=== PATIENT | female | born 1995 | race African-American/Black ===

== ENCOUNTER 2016-09-20 23:23 | Emergency (ER) | payer SELFPAY ==
[~2016-09-20] VITALS: Ht 157.5 cm; Wt 125.0 kg
[2016-09-21] MEDS ORDERED: KETOROLAC 60MG/2ML VIAL IM ONE (00:15)
[2016-09-21 01:06] VITALS: BP 140/85
== END 2016-09-21 02:11 | disposition home or self-care (01) ==
LOC: ER 23:23 → EDBD 23:23 → ER 09-21 02:11
DX: R51 Headache (principal); I10 Essential (primary) hypertension; J45.909 Unspecified asthma, uncomplicated; Z90.89 Acquired absence of other organs
CPT/HCPCS: 81025; 96372; 99283; J1885

== ENCOUNTER 2019-02-27 02:06 | Emergency (ER) | payer MEDICAID ==
[~2019-02-27] VITALS: Ht 157.5 cm; Wt 117.0 kg
[2019-02-27] MEDS ORDERED: ACETAMINOPHEN 325MG TABLET PO PRN (06:30)
[2019-02-27 07:02] LABS: EOSINOPHILS % 1.3 % (0.0-5.0); HEMATOCRIT. 37.5 % (36.0-48.0); HEMOGLOBIN. 12.5 g/dL (12.0-16.0); LYMPHOCYTES % 31.6 % (20.0-50.0); MEAN CORPUSCULAR HEMOGLOBIN 30.6 pg (28.0-32.0); MEAN CORPUSCULAR VOLUME 92.1 fL (81.0-99.0); MEAN PLATELET VOLUME 10.6 fl (7.4-10.4); MONOCYTES % 5.7 % (2.0-8.0); NEUTROPHILS % 60.4 % (40.0-76.0); PLATELET 259 x1000/uL (130-400); RED BLOOD CELL COUNT 4.07 mill/uL (4.2-5.4); RED CELL DISTRIBUTION WIDTH 14.2 % (11.6-14.6)
[2019-02-27 07:06] LABS: CHLORIDE 103 mEq/L (98-107)
[2019-02-27 07:16] LABS: B-HCG QUANTITATIVE < 1 mIU/mL (<3)
[2019-02-27 07:26] LABS: CLARITY URINE TURBID (CLEAR); KETONES URINE 1+ (NEGATIVE); LEUKOCYTE ESTERASE URINE 2+ (NEGATIVE); NITRITE URINE POSITIVE (NEGATIVE); OCCULT BLOOD URINE 3+ (NEGATIVE); PROTEIN URINE 2+ (NEGATIVE)
[2019-02-27 07:28] LABS: COLOR URINE BLOODY (YELLOW)
[2019-02-27] MEDS ORDERED: IOHEXOL-300 100 ML BOTTLE ONE (08:03)
[2019-02-27] MEDS ORDERED: METHOCARBAMOL 500MG TABLET PO ONE (08:45)
[2019-02-27 09:19] VITALS: BP 127/67
[2019-02-27] MEDS ORDERED: NITR100C MT (15:12)
== END 2019-02-27 09:29 | disposition home or self-care (01) ==
LOC: ER 02:06
DX: N92.1 Excessive and frequent menstruation with irregular cycle (principal); N83.209 Unspecified ovarian cyst, unspecified side; N39.0 Urinary tract infection, site not specified
CPT/HCPCS: 36415; 74177; 76830; 76856; 80053; 81003; 81025; 84702; 85025; 86850; 86900; 86901; 99284; Q9967